=== PATIENT | male | born 1985 | race Asian ===

== ENCOUNTER 2021-04-30 22:24 | Emergency (ER) | payer OTHER ==
--- NOTE | 2021-04-30 23:06 | ED Physician Documentation ---
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 He said that he had difficulty catching his breath for about an hour. He was told to go home and isolate even though he is vaccinated against COVID-19 and is having no cough or URI symptoms. He called the helpline because he again experienced chest pain and they advised him to come to the emergency room. Patient denies nausea, lightheadedness, diaphoresis, exertional pain, leg swelling or fever. Does endorse mild runny nose in the mornings. Review of Systems Constitutional: denies: Fever, Chills, Myalgias Nose: reports: Rhinorrhea / runny nose. denies: Congestion Cardiac: reports: Chest pain / pressure Respiratory: reports: Dyspnea. denies: Cough Musculoskeletal: denies: Extremity swelling Neurologic: denies: Generalized weakness PD PAST MEDICAL HISTORY - Past Medical History Past Medical History: No - Past Surgical History Past Surgical History: No - Present Medications Home Medications: Ambulatory Orders Medication Instructions Recorded Confirmed No Known Home Medications 04/30/21 04/30/21 - Allergies Allergies/Adverse Reactions: Allergies Allergy/AdvReac Type Severity Reaction Status Date / Time No Known Drug Allergies Allergy Verified 04/30/21 22:32 - Social History Does the pt smoke?: Yes Smoking Status: Current every day smoker Does the pt drink ETOH?: Yes ETOH Use: Liquor - Immunizations Immunizations are current?: Yes - POLST Patient has POLST: No PD ED PE NORMAL - Vitals Vital signs reviewed: Yes - General General: Alert and oriented X 3, No acute distress, Well developed/nourished - HEENT HEENT: Atraumatic, PERRL, EOMI - Neck Neck: Supple, no meningeal sign - Cardiac Cardiac: RRR, No murmur - Respiratory Respiratory: No respiratory distress, Clear bilaterally - Abdomen Abdomen: Non tender, Non distended - Derm Derm: Normal color, Warm and dry - Extremities Extremities: No deformity, No edema - Neuro Neuro: Alert and oriented X 3 - Psych Psych: Normal mood, Normal affect Results - Vitals Vitals: Vital Signs - 24 hr 04/30/21 22:29 Temperature 36.8 C Heart Rate 69 Respiratory 16 Rate Blood Pressure 142/88 H O2 Saturation 100 Oxygen O2 Source Room air - EKG (time done) 2305 Rate: Rate (enter#) (66) Rhythm: NSR [place]: Normal Intervals: Normal ID QRS: Normal Ischemia: Normal ST segments, Other (benign early repol) Computer interpretation: Agree with computer PD MEDICAL DECISION MAKING - ED course ED course: 36-year-old man presents for medical screening evaluation after having chest tightness and shortness of breath while at work today. He experienced continuing chest tightness and shortness of breath throughout the day that was nonexertional, intermittent. Screening EKG noncontributory and chest x-ray clear. Vitals and physical exam within normal limits. Education given and return precautions given. 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 Departure - Departure Clinical Impression: Chest pain, Shortness of breath Condition: Good Instructions: ED Chest Pain NonCardiac, ED Dyspnea Shortness of Breath Comments: You are seen in the emergency department for evaluation of chest pain and shortness of breath. Your chest x-ray was normal, your sugar level was normal, indicating you do not have diabetes, and your EKG was normal. Please follow-up with your flight surgeon. Return to the emergency department if you have any new or worsening symptoms or other concerns.
[2021-04-30 23:43] VITALS: BP 134/88
--- NOTE | 2021-05-01 07:51 | XRAY Report ---
PROCEDURE: Chest 2 View X-Ray INDICATIONS: soa, cp TECHNIQUE: 2 view(s) of the chest. COMPARISON: None. FINDINGS: Surgical changes and devices: None. Lungs and pleura: No pleural effusions or pneumothorax. Lungs are clear. Mediastinum: Mediastinal contours are normal. Heart size is normal. Bones and chest wall: No suspicious bony abnormalities. Soft tissues appear unremarkable. IMPRESSION: No evidence acute pulmonary process. A preliminary report with the above findings was provided at the time of the study by [facility]. Reviewed by: Jett Joseph MD on 05/01/2021 7:50 AM PDT Approved by: Jett Joseph MD on 05/01/2021 7:50 AM PDT Station ID: [id number]
== END 2021-04-30 23:43 | disposition home or self-care (01) ==
LOC: ED 22:24
DX: R07.89 Other chest pain (principal); R06.02 Shortness of breath; F17.200 Nicotine dependence, unspecified, uncomplicated
CPT/HCPCS: 93005; 99283; 99284